=== PATIENT | male | born 1990 | race Two or more races ===

== ENCOUNTER 2023-08-11 23:15 | Emergency (ER) | payer SELFPAY ==
[2023-08-11 23:16] VITALS: BP 136/79; PULSE 66; RESP 20; TEMP 36.6; O2SAT 97; BMI 27.4
--- NOTE | 2023-08-11 23:16 | ECG_ITS ---
APPROVED REPORT Exam: Resting ECG HR:63 bpm ECG Measurements Heart Rate 63 AXES DE 141 P 21 QRSd 93 QRS 101 QT 371 T 28 QTc 378 Conclusion SINUS RHYTHM RIGHT AXIS DEVIATION [QRS AXIS > 100] ABNORMAL ECG UNCONFIRMED REPORT Electronically signed by : Xavier Domingo MD 08/16/2023 11:11:57
--- NOTE | 2023-08-11 23:21 | HMH.EDGENADL ---
Discharge Plan Disposition Patient Disposition: Home, Self-Care Prescriptions Prescriptions: New pantoprazole 40 mg tablet,delayed release (DR/EC) 40 mg PO DAILY 42 Days Qty: 42 0RF pantoprazole 40 mg tablet,delayed release (DR/EC) 40 mg PO DAILY 42 Days Qty: 42 0RF Activity Restrictions/Add. Instructions Additional Instructions/Restrictions: Please follow-up with your primary care provider. Please return to the emergency department if you develop any new or worsening symptoms or become concerned for your health. Please begin taking pantoprazole again. I have sent a prescription to your pharmacy. Clinical Impressions Clinical Impression: Gastritis Discharge ED Provider: Tray Goldstein General Adult HPI General Chief complaint: Chest Pain Stated complaint: CP Time Seen by Provider: 08/11/23 23:21 History of Present Illness HPI narrative: 32-year-old male, history of gastritis, presents with worsening chronic epigastric and left upper quadrant pain. Patient reports pain is also radiating into his chest that time. Symptoms have been ongoing for years, he had a scope and was on PPI for a long time with improvement. He ran out of his PPI a few months ago. At that time his symptoms have worsened. He reports mild nausea but no vomiting. Reports no shortness of breath. Related Data Previous Rx's Medication Instructions Recorded pantoprazole 40 mg tablet,delayed 40 mg PO DAILY 6 weeks #42 tabs 08/11/23 release pantoprazole 40 mg tablet,delayed 40 mg PO DAILY 6 weeks #42 tabs 08/11/23 release Allergies Allergy/AdvReac Type Severity Reaction Status Date / Time No Known Allergies Allergy Verified 08/11/23 23:43 [facility] Disclaimer: The information contained in this section may have been updated after the patient was seen, as this information can be updated by other users. Social History Smoking Status: Current every day smoker alcohol intake: never current occupational status: employed Travel in the last 8 weeks: None ROS Obtained: Yes All systems reviewed & no additional complaints except as documented Physical Exam General General appearance: alert and in no apparent distress Head Head exam: atraumatic and normocephalic Eye Eye exam: Present normal appearance, PERRL and EOMI ENT ENT exam: Present normal oropharynx and normal external ear exam Neck Neck exam: Present normal inspection and full ROM Chest Chest inspection: Present normal inspection and symmetric chest wall rise; Absent tenderness Respiratory Respiratory exam: Present normal lung sounds bilaterally; Absent respiratory distress Cardiovascular Cardiovascular exam: Present regular rate and normal rhythm Abdominal Exam Abdominal exam: Present soft and tenderness (Mild, epigastric/left lower quadrant); Absent distention or guarding Extremities Exam Extremities exam: Present normal inspection; Absent edema or joint swelling Back Exam Back exam: Present normal inspection; Absent tenderness Neurological Exam Neurological exam: Present alert and oriented X3; Absent motor sensory deficit Psychiatric Psychiatric exam: Present normal affect and normal mood Skin Skin exam: Present warm, dry and normal color Lymphatic Lymphatic Findings: no adenopathy Medical Decision Making Medical Records Medical records reviewed: Yes I reviewed the patient's medical records. Edward Inquiry Pt receiving controlled substance: No Edward was queried for this patient: No Vital Signs: 08/11/23 23:16 08/11/23 23:45 08/12/23 00:09 Temperature 97.9 F 98.4 F Temperature Source Oral Oral Pulse Rate 66 65 Pulse Rate [Right] 66 Respiratory Rate 20 16 Blood Pressure 125/84 Blood Pressure [Right Arm] 136/79 Blood Pressure Mean [Right Arm] 98 Blood Pressure Source Automatic Cuff Blood Pressure Source [Right Arm] Automatic Cuff Blood Pressure Position Sitting Blood Pressure Position [Right Arm] Sitting 02 S
[2023-08-11 23:45] VITALS: PULSE 66
[2023-08-12 00:09] VITALS: BP 125/84; PULSE 65; RESP 16; TEMP 36.9; O2SAT 97
== END 2023-08-12 00:10 | disposition home or self-care (01) ==
LOC: ER 08-12 00:20
PROVIDERS: Emergency Provider Emergency Medicine
DX: K29.00 Acute gastritis without bleeding (principal); R07.9 Chest pain, unspecified; F17.210 Nicotine dependence, cigarettes, uncomplicated
CPT/HCPCS: 93005; 99283

== ENCOUNTER 2023-08-19 02:02 | Emergency (ER) | payer SELFPAY ==
[2023-08-19 02:02] VITALS: BP 146/91; PULSE 72; RESP 18; TEMP 36.4; O2SAT 99; BMI 29.2
--- NOTE | 2023-08-19 02:31 | CT_ITS ---
PROCEDURE INFORMATION: Exam: CT Abdomen And Pelvis With Contrast Exam date and time: 08/19/2023 2:50 AM Age: 32 years old Clinical indication: Abdominal pain; Epigastric; Additional info: Epigastric pain, n/v, fever TECHNIQUE: Imaging protocol: Computed tomography of the abdomen and pelvis with contrast. Radiation optimization: All CT scans at this facility use at least one of these dose optimization techniques: automated exposure control; mA and/or kV adjustment per patient size (includes targeted exams where dose is matched to clinical indication); or iterative reconstruction. Contrast material: ISOVUE; Contrast volume: 75 ml; Contrast route: IV; REPORTING DATA: Count of CT and Cardiac NM exams in prior 12 months: This patient has received 0 known CTs and 0 known cardiac nuclear medicine studies in the 12 months prior to the current study. COMPARISON: No relevant prior studies available. FINDINGS: Lungs: No acute finding. Liver: Moderate hepatic steatosis is evident. Gallbladder and bile ducts: Normal. No calcified stones. No ductal dilation. Pancreas: Normal. No ductal dilation. Spleen: Normal. No splenomegaly. Adrenal glands: Normal. No mass. Kidneys and ureters: 11 mm cortical hypodensity lower pole right kidney with Hounsfield units consistent with a cyst. The kidneys demonstrate symmetric unobstructed function. Stomach and bowel: Unremarkable. No obstruction. No mucosal thickening. Appendix: No evidence of appendicitis. Intraperitoneal space: Unremarkable. No free air. No significant fluid collection. Vasculature: Unremarkable. No abdominal aortic aneurysm. Lymph nodes: Unremarkable. No enlarged lymph nodes. Urinary bladder: Unremarkable as visualized. Reproductive: The prostate gland is mildly prominent. Bones/joints: Unremarkable. No acute fracture. Soft tissues: A very small fat containing left inguinal hernia is noted. IMPRESSION: 1. There is no acute process evident within the abdomen or pelvis. 2. Moderate hepatic steatosis. 3. Other nonurgent findings as detailed. COMMENTS: Consistent with the [employer]'s Incidental Findings Committee white paper (J Am Eve Radiol 2018): Any incidental renal lesion less than 1 cm or classified as too small to characterize, or any incidental cystic renal lesion characterized as simple-appearing, is likely benign. No follow-up imaging is recommended for these lesions per consensus recommendations based on imaging criteria.
--- NOTE | 2023-08-19 02:32 | HMH.EDGENADL ---
Discharge Plan Disposition Patient Disposition: Home, Self-Care Condition: Good Prescriptions Prescriptions: New famotidine [Pepcid] 20 mg tablet 20 mg PO DAILY Qty: 30 0RF ondansetron 4 mg tablet,disintegrating 4 mg PO Q8H PRN (Reason: nausea and vomiting) 4 Days Qty: 12 0RF No Action pantoprazole 40 mg tablet,delayed release (DR/EC) 40 mg PO DAILY 42 Days Qty: 42 0RF pantoprazole 40 mg tablet,delayed release (DR/EC) 40 mg PO DAILY 42 Days Qty: 42 0RF Referrals Follow up/Referrals: Provider,Referral, MD [Primary Care Provider] - See instructions Activity Restrictions/Add. Instructions Additional Instructions/Restrictions: You were evaluated in the emergency department today. 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 Follow-up closely with a primary care provider over the next 3 days. Hydrate is much as possible. Eat a bland diet. Avoid alcohol. Clinical Impressions Clinical Impression: Abdominal pain, epigastric, Renal cyst, Fatty liver Instructions Patient Instructions: DI for Gastritis, DI for Acute Abdominal Pain Discharge ED Provider: Bekah Sun General Adult HPI General Chief complaint: Abdominal Pain Stated complaint: stomach pain Time Seen by Provider: 08/19/23 02:16 Mode of Arrival: Ambulatory Source of Information: Patient Limitations: No Limitations Description of Symptoms (Recalled from ER Triage Doc. by RN): Pt presents with abdominal pain for 3 days with episodes of vomiting. LBM today denies any diarrhea. History of Present Illness HPI narrative: This patient is a 32-year-old male with a history of gastritis on PPI presenting to the emergency department for evaluation with concern for epigastric abdominal pain, subjective fevers, nausea, and vomiting. He states that he is also having decreased urine output. He states that this has been going on for a couple of weeks now. On medical record review, he was evaluated here on 08/11/2023 for similar symptoms. At that time, he was diagnosed with gastritis and prescribed a PPI. No imaging was performed at that time based on reassuring history and exam. Patient states that since going home on the PPI, it has not really been helping with his symptoms. He states he is also taken Tylenol with minimal improvement. He denies any cough, congestion, chest pain, shortness of breath, changes in bowel movements, or other concerns. He does note a remote history of endoscopy, which when he was diagnosed with a hiatal hernia. History is obtained with the help of a steel roller. Of note, patient does note use of alcohol almost daily. He states that he would estimate that he drinks as many as 15 days in a row. He denies any smoking or illicit drug use. Related Data Previous Rx's Medication Instructions Recorded pantoprazole 40 mg tablet,delayed 40 mg PO DAILY 6 weeks #42 tabs 08/11/23 release pantoprazole 40 mg tablet,delayed 40 mg PO DAILY 6 weeks #42 tabs 08/11/23 release famotidine 20 mg tablet (Pepcid) 20 mg PO DAILY #30 tabs 08/19/23 ondansetron 4 mg disintegrating 4 mg PO Q8H PRN nausea and 08/19/23 tablet vomiting 4 days #12 tabs Allergies Allergy/AdvReac Type Severity Reaction Status Date / Time No Known Allergies Allergy Verified 08/11/23 23:43 [facility] Disclaimer: The information contained in this section may have been updated after the patient was seen, as this information can be updated by other users. Social History Smoking Status: Never smoker alcohol intake: never current occupational status: employed Travel in the last 8 weeks: None ROS Obtained: Yes All systems reviewed & no additional complaints except as documented Physical Exam General General appearance: alert and in no apparent distress Comment: Well-appearing Head Head exam: atraumatic and normocephalic Eye Eye exam: Present normal
[2023-08-19 02:37] LABS: Basophils # 0.1 K/mm3 (0-0.2); Basophils % 0.9 % (0.1-2.0); Eosinophils # 1.5 K/mm3 (0.0-0.4); Hematocrit 46.6 % (42.0-52.0); Lymphocytes # 2.7 K/mm3 (0.7-4.5); Mean Corpuscular HGB Conc 34.2 g/dL (31.8-35.4); Mean Corpuscular Hemoglobin 31.1 pg (27.0-31.2); Mean Corpuscular Volume 90.8 fl (80-94); Monocytes # 0.4 K/mm3 (0.1-1.0); Monocytes % 5.6 % (1.7-9.3); Neutrophils # 2.9 K/mm3 (1.8-7.8); Neutrophils % 38.5 % (37.0-80.0); Platelet Count 218 K/mm3 (142-424); Red Blood Count 5.13 M/mm3 (4.60-6.20); Red Cell Distribution Width 13.1 % (11.5-17.5); White Blood Count 7.6 K/mm3 (4.8-10.8)
[2023-08-19 02:41] LABS: Alanine Aminotransferase 109 U/L (12-78); Albumin Level 4.9 g/dl (3.5-5.0); Albumin/Globulin Ratio 1.2 (1.1-1.8); Alkaline Phosphatase 87 U/L (38-126); Anion Gap 14.7 mEq/L (5-15); Aspartate Amino Transferase 66 U/L (17-59); Bilirubin,Total 0.4 mg/dl (0.2-1.3); Blood Urea Nitrogen 18 mg/dl (9-20); Calcium 9.5 mg/dl (8.4-10.2); Carbon Dioxide 24 mmol/L (22.0-30.0); Chloride 104 mmol/L (98-107); Creatinine Clearance Estimated 200 mL/min (50-200); Estimated Glomerular Filt Rate 190 ml/min (>60); GFR (African American) 230 ML/MIN (>60); Globulin 4.2 g/dL (1.3-3.2); Glucose 101 mg/dl (74-100); Lipase 104 U/L (23-300); Potassium 3.7 mmoL/L (3.5-5.1); Sodium 139 mmol/L (136-145); Total Protein,Serum 9.1 g/dl (6.3-8.2)
--- NOTE | 2023-08-19 03:52 | PC.NURSE ---
Pt provided crackers and og javier for PO challenge
[2023-08-19 04:18] VITALS: BP 140/88; PULSE 75; RESP 16; TEMP 36.6; O2SAT 98
== END 2023-08-19 04:25 | disposition home or self-care (01) ==
PROVIDERS: Emergency Provider Emergency Medicine
DX: R10.13 Epigastric pain (principal); K76.0 Fatty (change of) liver, not elsewhere classified; R11.2 Nausea with vomiting, unspecified; N28.1 Cyst of kidney, acquired; K44.9 Diaphragmatic hernia without obstruction or gangrene; F10.90 Alcohol use, unspecified, uncomplicated
CPT/HCPCS: 74177; 80053; 83690; 85025; 96374; 96375; 99284; J0131; J2405; Q9967

== ENCOUNTER 2025-03-15 13:47 | Emergency (ER) | payer SELFPAY ==
--- NOTE | 2025-03-15 13:53 | HMH.EDGENADL ---
Discharge Plan Disposition Patient Disposition: Home, Self-Care Condition: Good Prescriptions Prescriptions: No Action pantoprazole 40 mg tablet,delayed release (DR/EC) 40 mg PO DAILY 42 Days Qty: 42 0RF pantoprazole 40 mg tablet,delayed release (DR/EC) 40 mg PO DAILY 42 Days Qty: 42 0RF famotidine [Pepcid] 20 mg tablet 20 mg PO DAILY Qty: 30 0RF ondansetron 4 mg tablet,disintegrating 4 mg PO Q8H PRN (Reason: nausea and vomiting) 4 Days Qty: 12 0RF Referrals Follow up/Referrals: Rowan Goyal APRN [Primary Care Provider] - See instructions Activity Restrictions/Add. Instructions Additional Instructions/Restrictions: As we discussed I recommend taking Tylenol alternating with Motrin for your symptoms. If you have persistent new or worsening signs or symptoms follow-up with your PCP return to the ER as needed. I recommend starting a brat diet which is bananas rice applesauce toast until you tolerate any and then you may advance as tolerated. Clinical Impressions Clinical Impression: Enteritis Instructions Patient Instructions: DI for Acute Abdominal Pain Print Language Print Language: Dominican Discharge ED Provider: Mich Alexander General Adult HPI <TRENTON Aragon - Last Filed: 03/15/25 21:17> General Chief complaint: Abdominal Pain Stated complaint: stomach pain headache Time Seen by Provider: 03/15/25 13:53 History of Present Illness HPI narrative: Patient presents for evaluation of abdominal pain nausea vomiting diarrhea. Patient has 3 days of nausea vomiting diarrhea and abdominal pain. Abdominal pain is diffuse nonfocal nonradiating. He reports that he has a headache today but denies sore throat chest pain shortness of breath fever chills hemoptysis hematochezia melena hematemesis hematuria. Related Data Previous Rx's ?Medication ?Instructions ?Recorded pantoprazole 40 mg tablet,delayed 40 mg PO DAILY 6 weeks #42 tabs 08/11/23 release pantoprazole 40 mg tablet,delayed 40 mg PO DAILY 6 weeks #42 tabs 08/11/23 release famotidine 20 mg tablet (Pepcid) 20 mg PO DAILY #30 tabs 08/19/23 ondansetron 4 mg disintegrating 4 mg PO Q8H PRN nausea and 08/19/23 tablet vomiting 4 days #12 tabs Allergies Allergy/AdvReac Type Severity Reaction Status Date / Time No Known Allergies Allergy Verified 08/11/23 23:43 [facility] <TRENTON Aragon - Last Filed: 03/15/25 21:17> [facility] Disclaimer: The information contained in this section may have been updated after the patient was seen, as this information can be updated by other users. Social History Smoking Status: Never smoker alcohol intake: never current occupational status: employed Travel in the last 8 weeks?: None Have you lived/traveled outside US in past 30 days?: No Contact w/someone who lives/traveled outside US past 30 days?: No Exposure to someone with infectious disease in past 14 days?: No Do you have a fever (greater than 100.4 F or 38 C)?: No Have you tested positive for COVID-19?: No Exposed to someone with COVID-19 in past 14 days?: No Do you have a sore throat?: No Do you have a cough?: No Do you have any weakness?: No Do you have any diarrhea?: No Are you experiencing any unusual bleeding?: No Do you have any muscle aches/pain?: No Do you have any abdominal pain?: No Are you experiencing loss of taste or smell?: No <TRENTON Aragon - Last Filed: 03/15/25 21:17> ROS Obtained: Yes Systems reviewed as appropriate & no additional complaints except as documented Physical Exam <TRENTON Aragon - Last Filed: 03/15/25 21:17> General General appearance: alert and in no apparent distress Respiratory Respiratory exam: Present normal lung sounds bilaterally Cardiovascular Cardiovascular exam: Present regular rate Neurological Exam Neurological exam: Present alert and oriented X3 Medical Decision Making <TRENTON Aragon - Last Filed: 03/15/25 21:17> Medical Records Medical records reviewed: Yes I reviewed the patient's medical records. Screening: Per USPSTF and CDC recommendations, given the prevalence of disease in our region, it is our hospital?s policy to screen for HIV and viral Hepatitis for all patients aged 18 and over and those with ongoing risk factors. Edward Inquiry Pt receiving controlled substance: No Vital Signs: 03/15/25 14:00 03/15/25 14:00 03/15/25 14:31 Temperature 99.0 F Temperature Source Oral Pulse Rate 69 75 Pulse Rate [Right] 98 H Respiratory Rate 17 Blood Pressure 104/65 L 103/62 L Blood Pressure [Right Arm] 116/78 Blood Pressure Mean [Right Arm] 90 Blood Pressure Source Blood Pressure Source [Right Arm] Automatic Cuff Blood Pressure Position 02 Sat by Pulse Oximetry 99 96 98 Oxygen Delivery Method Room Air Room Air Room Air 03/15/25 14:34 03/15/25 15:01 03/15/25 15:30 Temperature Temperature Source Pulse Rate 89 78 84 Pulse Rate [Right] Respiratory Rate Blood Pressure 106/67 L 101/59 L 115/67 Blood Pressure [Right Arm] Blood Pressure Mean [Right Arm] Blood Pressure Source Blood Pressure Source [Right Arm] Blood Pressure Position 02 Sat by Pulse Oximetry 96 98 96 Oxygen Delivery Method Room Air Room Air Room Air 03/15/25 18:15 Temperature 98.1 F Temperature Source Oral Pulse Rate 84 Pulse Rate [Right] Respiratory Rate 17 Blood Pressure 115/67 Blood Pressure [Right Arm] Blood Pressure Mean [Right Arm] Blood Pressure Source Automatic Cuff Blood Pressure Source [Right Arm] Blood Pressure Position Sitting 02 Sat by Pulse Oximetry Oxygen Delivery Method Room Air Lab Data Lab results reviewed: Yes I reviewed the patient's lab results. Lab Results 03/15/25 14:21: WBC 7.7, RBC 4.99, Hgb 15.0, Hct 43.5, MCV 87.2, MCH 30.1, MCHC 34.5, RDW 12.8, Plt Count 166, MPV 9.7, Neut % (Auto) 73.9, Lymph % (Auto) 15.0, [place] % (Auto) 10.2 H, Eos % (Auto) 0.3, Baso % (Auto) 0.3, Neut # (Auto) 5.7, Lymph # (Auto) 1.2, [place] # (Auto) 0.8, Eos # (Auto) 0.0, Baso # (Auto) 0.0, PT 11.9, INR 1.07, Sodium 136, Potassium 3.7, Chloride 106, Carbon Dioxide 23, Anion Gap 10.7, BUN 12, Creatinine 0.50 L, Estimated Creat Clear 157, Estimated GFR 188, Est GFR ( Amer) 228, Glucose 85, Calcium 9.0, Total Bilirubin 0.7, AST 45, ALT 75, Alkaline Phosphatase 67, Total Protein 7.9, Albumin 4.9, Globulin 3.0, Albumin/Globulin Ratio 1.6, Lipase 31, Procalcitonin 0.120, HCV Ab BLANCA w/Rflx PCR Qn Negative, HIV Ag/Ab Combo Qual Negative 03/15/25 16:13: Urine Color Yellow, Urine Appearance Clear, Urine pH 6.0, Ur Specific [place] <= 1.005, Urine Protein Negative, Urine Glucose (UA) Negative, Urine Ketones 1+, Urine Blood Negative, Urine Nitrate Negative, Urine Bilirubin Negative, Urine Urobilinogen 0.2, Ur Leukocyte Esterase Negative, Urine RBC None, Urine WBC Occasional, Ur Squamous Epith Cells Occasional, Urine Bacteria Trace 03/15/25 14:21 03/15/25 14:21 Orders (Tests/Meds): ED MEDICATIONS Discontinued Medications Generic Name Dose Route Start Last Admin Trade Name Freq PRN Reason Stop Dose Admin Acetaminophen 1,000 mg 03/15/25 16:19 03/15/25 16:25 Acetaminophen 500mg Tab PO 03/15/25 16:20 1,000 mg ONCE ONE Administration Sodium Chloride 1,000 mls @ 999 mls/hr 03/15/25 14:13 03/15/25 14:46 Sod Chlor 0.9% 1000ml Bag IV 03/15/25 15:13 999 mls/hr .Q1H1M ONE Administration Iopamidol 75 ml 03/15/25 15:00 03/15/25 15:01 Iopamidol-370 (76%);100ml Bottle IV 03/15/25 15:01 Not Given ONCE ONE Iopamidol 75 ml 03/15/25 15:00 03/15/25 15:01 Iopamidol-370 (76%);100ml Bottle IV 03/15/25 15:01 Not Given ONCE ONE Ketorolac Tromethamine 30 mg 03/15/25 16:19 03/15/25 16:25 Ketorolac 30mg/Ml Vial IV 03/15/25 16:20 30 mg ONCE ONE Administration Ondansetron HCl 4 mg 03/15/25 14:13 03/15/25 14:49 Ondansetron 4mg/2ml Vial IV 03/15/25 14:14 4 mg ONCE ONE Administration Ondansetron HCl 4 mg 03/15/25 16:43 03/15/25 16:58 Ondansetron 4mg/2ml Vial IV 03/15/25 16:44 4 mg ONCE ONE Administration Sodium Chloride 10 ml 03/15/25 14:59 03/15/25 15:01 Sodium Chloride 0.9% 10ml Syr (Rad Only) IV 03/15/25 15:00 10 ml ONCE ONE Administration Sodium Chloride 10 ml 03/15/25 15:00 03/15/25 16:23 Sodium Chloride 0.9% 10ml Syr (Rad Only) IV 03/15/25 15:01 Not Given ONCE ONE ORDERS Category Date Time Status CT abdomen pelvis w con Stat Cat Scan 03/15/25 14:13 Completed CBC w/Auto Diff [Complete Blood Count Auto Diff] Stat Lab 03/15/25 14:21 Completed CMP [Comprehensive Metabolic Panel] Stat Lab 03/15/25 14:21 Completed HIV Combo Stat Lab 03/15/25 14:21 Completed Hepatitis C Ab Qual. W/ RFX Stat Lab 03/15/25 14:21 Completed INR [Prothrombin Time INR] Stat Lab 03/15/25 14:21 Completed Lipase Stat Lab 03/15/25 14:21 Completed Procalcitonin Stat Lab 03/15/25 14:21 Completed UA [Urinalysis and Microscopic] Stat Lab 03/15/25 16:13 Completed Medical Decision Narrative: In summary patient is a 34-year-old female who presents to the emergency department for evaluation of abdominal pain nausea vomiting diarrhea. Patient is initially slightly hypotensive with a blood pressure 104/65 with a heart rate of 69 normal sinus rhythm on the bedside monitor breathing 17 times minute satting at 99% on room air upon arrival, with a temperature of 99. 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 Bowel sounds hyperactive.. Differential diagnosis includes enteritis versus upper or lower respiratory tract infection versus urinary tract infection etc. Initial workup will be conducted with hematologic labs urinalysis CT scan abdomen pelvis. Initial interventions include crystalloid bolus Tylenol Toradol Zofran. Initial workup reviewed by me and his hematologic labs significant for white count 7.7 normal H&H with no neutrophilic shift, INR of 1.07, the remainder of his hematologic labs are nonactionable including a lipase of 31 no transaminitis or hyperbilirubinemia and procalcitonin is 0.120 urinalysis was bland without evidence of urinary tract infection in my informed interpretation of his CT scan abdomen pelvis shows fluid-filled small bowel is not dilated and no other acute intra-abdominal processes prior to radiology read. Please see final read for formal interpretation.. Upon repeat evaluation patient reports significant improvement and is tolerating oral intake in the emergency department.. Given this patient is appropriate for discharge with recommendations to start a brat diet with bananas rice applesauce toast and should he have persistent new or worsening signs or symptoms follow-up with his PCP return to the ER as needed <Mich Alexander MD - Last Filed: 03/15/25 21:31> Vital Signs: 03/15/25 14:00 03/15/25 14:00 03/15/25 14:31 Temperature 99.0 F Temperature Source Oral Pulse Rate 69 75 Pulse Rate [Right] 98 H Respiratory Rate 17 Blood Pressure 104/65 L 103/62 L Blood Pressure [Right Arm] 116/78 Blood Pressure Mean [Right Arm] 90 Blood Pressure Source Blood Pressure Source [Right Arm] Automatic Cuff Blood Pressure Position 02 Sat by Pulse Oximetry 99 96 98 Oxygen Delivery Method Room Air Room Air Room Air 03/15/25 14:34 03/15/25 15:01 03/15/25 15:30 Temperature Temperature Source Pulse Rate 89 78 84 Pulse Rate [Right] Respiratory Rate Blood Pressure 106/67 L 101/59 L 115/67 Blood Pressure [Right Arm] Blood Pressure Mean [Right Arm] Blood Pressure Source Blood Pressure Source [Right Arm] Blood Pressure Position 02 Sat by Pulse Oximetry 96 98 96 Oxygen Delivery Method Room Air Room Air Room Air 03/15/25 18:15 Temperature 98.1 F Temperature Source Oral Pulse Rate 84 Pulse Rate [Right] Respiratory Rate 17 Blood Pressure 115/67 Blood Pressure [Right Arm] Blood Pressure Mean [Right Arm] Blood Pressure Source Automatic Cuff Blood Pressure Source [Right Arm] Blood Pressure Position Sitting 02 Sat by Pulse Oximetry Oxygen Delivery Method Room Air Lab Data Lab Results 03/15/25 14:21: WBC 7.7, RBC 4.99, Hgb 15.0, Hct 43.5, MCV 87.2, MCH 30.1, MCHC 34.5, RDW 12.8, Plt Count 166, MPV 9.7, Neut % (Auto) 73.9, Lymph % (Auto) 15.0, [place] % (Auto) 10.2 H, Eos % (Auto) 0.3, Baso % (Auto) 0.3, Neut # (Auto) 5.7, Lymph # (Auto) 1.2, [place] # (Auto) 0.8, Eos # (Auto) 0.0, Baso # (Auto) 0.0, PT 11.9, INR 1.07, Sodium 136, Potassium 3.7, Chloride 106, Carbon Dioxide 23, Anion Gap 10.7, BUN 12, Creatinine 0.50 L, Estimated Creat Clear 157, Estimated GFR 188, Est GFR ( Amer) 228, Glucose 85, Calcium 9.0, Total Bilirubin 0.7, AST 45, ALT 75, Alkaline Phosphatase 67, Total Protein 7.9, Albumin 4.9, Globulin 3.0, Albumin/Globulin Ratio 1.6, Lipase 31, Procalcitonin 0.120, HCV Ab BLANCA w/Rflx PCR Qn Negative, HIV Ag/Ab Combo Qual Negative 03/15/25 16:13: Urine Color Yellow, Urine Appearance Clear, Urine pH 6.0, Ur Specific [place] <= 1.005, Urine Protein Negative, Urine Glucose (UA) Negative, Urine Ketones 1+, Urine Blood Negative, Urine Nitrate Negative, Urine Bilirubin Negative, Urine Urobilinogen 0.2, Ur Leukocyte Esterase Negative, Urine RBC None, Urine WBC Occasional, Ur Squamous Epith Cells Occasional, Urine Bacteria Trace Orders (Tests/Meds): ED MEDICATIONS Discontinued Medications Generic Name Dose Route Start Last Admin Trade Name Freq PRN Reason Stop Dose Admin Acetaminophen 1,000 mg 03/15/25 16:19 03/15/25 16:25 Acetaminophen 500mg Tab PO 03/15/25 16:20 1,000 mg ONCE ONE Administration Sodium Chloride 1,000 mls @ 999 mls/hr 03/15/25 14:13 03/15/25 14:46 Sod Chlor 0.9% 1000ml Bag IV 03/15/25 15:13 999 mls/hr .Q1H1M ONE Administration Iopamidol 75 ml 03/15/25 15:00 03/15/25 15:01 Iopamidol-370 (76%);100ml Bottle IV 03/15/25 15:01 Not Given ONCE ONE Iopamidol 75 ml 03/15/25 15:00 03/15/25 15:01 Iopamidol-370 (76%);100ml Bottle IV 03/15/25 15:01 Not Given ONCE ONE Ketorolac Tromethamine 30 mg 03/15/25 16:19 03/15/25 16:25 Ketorolac 30mg/Ml Vial IV 03/15/25 16:20 30 mg ONCE ONE Administration Ondansetron HCl 4 mg 03/15/25 14:13 03/15/25 14:49 Ondansetron 4mg/2ml Vial IV 03/15/25 14:14 4 mg ONCE ONE Administration Ondansetron HCl 4 mg 03/15/25 16:43 03/15/25 16:58 Ondansetron 4mg/2ml Vial IV 03/15/25 16:44 4 mg ONCE ONE Administration Sodium Chloride 10 ml 03/15/25 14:59 03/15/25 15:01 Sodium Chloride 0.9% 10ml Syr (Rad Only) IV 03/15/25 15:00 10 ml ONCE ONE Administration Sodium Chloride 10 ml 03/15/25 15:00 03/15/25 16:23 Sodium Chloride 0.9% 10ml Syr (Rad Only) IV 03/15/25 15:01 Not Given ONCE ONE ORDERS Category Date Time Status CT abdomen pelvis w con Stat Cat Scan 03/15/25 14:13 Completed CBC w/Auto Diff [Complete Blood Count Auto Diff] Stat Lab 03/15/25 14:21 Completed CMP [Comprehensive Metabolic Panel] Stat Lab 03/15/25 14:21 Completed HIV Combo Stat Lab 03/15/25 14:21 Completed Hepatitis C Ab Qual. W/ RFX Stat Lab 03/15/25 14:21 Completed INR [Prothrombin Time INR] Stat Lab 03/15/25 14:21 Completed Lipase Stat Lab 03/15/25 14:21 Completed Procalcitonin Stat Lab 03/15/25 14:21 Completed UA [Urinalysis and Microscopic] Stat Lab 03/15/25 16:13 Completed Medical Decision Narrative: In summary patient is a 34-year-old female who presents to the emergency department for evaluation of abdominal pain nausea vomiting diarrhea. Patient is initially slightly hypotensive with a blood pressure 104/65 with a heart rate of 69 normal sinus rhythm on the bedside monitor breathing 17 times minute satting at 99% on room air upon arrival, with a temperature of 99. 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 Bowel sounds hyperactive.. Differential diagnosis includes enteritis versus upper or lower respiratory tract infection versus urinary tract infection etc. Initial workup will be conducted with hematologic labs urinalysis CT scan abdomen pelvis. Initial interventions include crystalloid bolus Tylenol Toradol Zofran. Initial workup reviewed by me and his hematologic labs significant for white count 7.7 normal H&H with no neutrophilic shift, INR of 1.07, the remainder of his hematologic labs are nonactionable including a lipase of 31 no transaminitis or hyperbilirubinemia and procalcitonin is 0.120 urinalysis was bland without evidence of urinary tract infection in my informed interpretation of his CT scan abdomen pelvis shows fluid-filled small bowel is not dilated and no other acute intra-abdominal processes prior to radiology read. Please see final read for formal interpretation.. Upon repeat evaluation patient reports significant improvement and is tolerating oral intake in the emergency department.. Given this patient is appropriate for discharge with recommendations to start a brat diet with bananas rice applesauce toast and should he have persistent new or worsening signs or symptoms follow-up with his PCP return to the ER as needed. I was consulted by the ANDREW, and we discussed the complexity of the problems being addressed. I approved the treatment and management plan for this patient's care in the emergency department, thus performing a substantive portion of the medical decision making. Mcih Alexander MD Critical Care <TRENTON Aragon - Last Filed: 03/15/25 21:17> Critical Care Time Critical Care Time: No
[2025-03-15 14:00] VITALS: BP 104/65; BP 116/78; PULSE 69; PULSE 98; RESP 17; TEMP 37.2; O2SAT 96; O2SAT 99; BMI 21.9
--- NOTE | 2025-03-15 14:13 | CT_ITS ---
PROCEDURE INFORMATION: Exam: CT Abdomen And Pelvis With Contrast Exam date and time: 03/15/2025 2:54 PM Age: 34 years old Clinical indication: Nausea and vomiting; Additional info: Nausea vomiting diarrhea abdominal pain TECHNIQUE: Imaging protocol: Computed tomography of the abdomen and pelvis with contrast. Radiation optimization: All CT scans at this facility use at least one of these dose optimization techniques: automated exposure control; mA and/or kV adjustment per patient size (includes targeted exams where dose is matched to clinical indication); or iterative reconstruction. Contrast material: ISOVUE; Contrast volume: 75 ml; Contrast route: IV; COMPARISON: CT ABDOMEN PELVIS W CON 08/19/2023 2:50 AM FINDINGS: Lungs: Lung bases are clear. Liver: Liver is not significantly enlarged. There is diffuse fatty infiltration. No masses detected. Gallbladder and biliary ducts: Normal. No calcified stones. No ductal dilation. Pancreas: Unremarkable. Main pancreatic duct is not significantly dilated. Spleen: Normal. No splenomegaly. Adrenal glands: Normal. No mass. Kidneys and ureters: Normal. No hydronephrosis. Stomach and bowel: Unremarkable. No obstruction. No mucosal thickening. Appendix: No evidence of appendicitis. Intraperitoneal space: Unremarkable. No free air. No significant fluid collection. Vasculature: Unremarkable. No abdominal aortic aneurysm. Lymph nodes: Mild mesenteric lymphadenopathy midabdomen unchanged likely benign and longstanding. Urinary bladder: Unremarkable as visualized. Reproductive: Prostate gland is mildly enlarged, unchanged. Bones/joints: Unremarkable. No acute fracture. Soft tissues: Small fat containing left inguinal hernia. Right groin site is unremarkable. IMPRESSION: No acute findings within the abdomen or pelvis.
[2025-03-15 14:31] VITALS: BP 103/62; PULSE 75; O2SAT 98
[2025-03-15 14:31] LABS: Basophils % 0.3 % (0.1-2.0); Eosinophils % 0.3 % (0.1-12.0); Hematocrit 43.5 % (42.0-52.0); Immature Granulocytes # 0.02 10^3uL; Immature Granulocytes % 0.3 %; Lymphocytes # 1.2 K/mm3 (0.7-4.5); Mean Corpuscular HGB Conc 34.5 g/dL (31.8-35.4); Mean Corpuscular Hemoglobin 30.1 pg (27.0-31.2); Mean Corpuscular Volume 87.2 fl (80-94); Mean Platelet Volume 9.7 fl (7.4-10.4); Monocytes # 0.8 K/mm3 (0.1-1.0); Monocytes % 10.2 % (1.7-9.3); Neutrophils # 5.7 K/mm3 (1.8-7.8); Neutrophils % 73.9 % (37.0-80.0); Nucleated Red Blood Cells # 0 10^3/uL; Nucleated Red Blood Cells % 0 %; Platelet Count 166 K/mm3 (142-424); Red Blood Count 4.99 M/mm3 (4.60-6.20); Red Cell Distribution Width 12.8 % (11.5-17.5); Red Cell Distribution Width-SD 40.6 fL; White Blood Count 7.7 K/mm3 (4.8-10.8)
[2025-03-15 14:34] VITALS: BP 106/67; PULSE 89; O2SAT 96
[2025-03-15 14:41] LABS: Alanine Aminotransferase 75 U/L (12-78); Albumin Level 4.9 g/dl (3.5-5.0); Albumin/Globulin Ratio 1.6 (1.1-1.8); Alkaline Phosphatase 67 U/L (38-126); Anion Gap 10.7 mEq/L (5-15); Aspartate Amino Transferase 45 U/L (17-59); Bilirubin,Total 0.7 mg/dl (0.2-1.3); Blood Urea Nitrogen 12 mg/dl (9-20); Carbon Dioxide 23 mmol/L (22.0-30.0); Chloride 106 mmol/L (98-107); Creatinine Clearance Estimated 157 mL/min (50-200); Estimated Glomerular Filt Rate 188 ml/min (>60); GFR (African American) 228 ML/MIN (>60); Glucose 85 mg/dl (74-100); Lipase 31 U/L (23-300); Potassium 3.7 mmoL/L (3.5-5.1); Sodium 136 mmol/L (136-145); Total Protein,Serum 7.9 g/dl (6.3-8.2)
[2025-03-15 14:42] LABS: INR 1.07 (0.9-1.1); Prothrombin Time 11.9 seconds (10.1-12.5)
[2025-03-15] MEDS: 0.9 % SODIUM CHLORIDE 1000ML 1,000 ML 999 ML IV (14:46)
[2025-03-15] MEDS: ONDANSETRON 4MG/2ML VIAL 4 MG IV ×2 (14:49→16:58)
[2025-03-15 15:01] VITALS: BP 101/59; PULSE 78; O2SAT 98
[2025-03-15] MEDS: SODIUM CHLORIDE 0.9% 10ML SYR (RAD ONLY) 10 ML IV (15:01)
[2025-03-15 15:30] VITALS: BP 115/67; PULSE 84; O2SAT 96
[2025-03-15 16:02] LABS: HIV Combo NEGATIVE (Negative)
[2025-03-15 16:10] LABS: Hepatitis C Ab Qual. W/ RFX NEGATIVE (Negative)
[2025-03-15 16:20] LABS: Microscopic, Urine URINE MICROSCOPIC (MICROSCOPIC)
[2025-03-15] MEDS: ACETAMINOPHEN 500MG TAB 1000 MG PO (16:25)
[2025-03-15] MEDS: KETOROLAC 30MG/ML VIAL 30 MG IV (16:25)
[2025-03-15 16:28] LABS: Appearance,Urine CLEAR (Clear); Bilirubin,Urine Negative (Negative); Blood, Urine Negative (Negative); Color,Urine YELLOW (Yellow); Glucose,Urine (UA) Negative (Negative); Ketones,Urine 1+ (Negative); Leukocyte Esterase,Urine Negative (Negative); Nitrate,Urine Negative (Negative); Protein,Urine Negative (Negative); Specific Gravity, Urine <= 1.005 (1.005-1.030); Urobilinogen,Urine 0.2 EU/dl (0.2)
[2025-03-15 16:51] LABS: Squamous Epithelial Cell,Urine Occasional #/hpf (0-5); WBC,Urine Occasional #/hpf (0-3)
[2025-03-15 16:52] LABS: Bacteria,Urine Trace /lpf
[2025-03-15 18:15] VITALS: BP 115/67; PULSE 84; RESP 17; TEMP 36.7; O2SAT 97
== END 2025-03-15 18:15 | disposition home or self-care (01) ==
PROVIDERS: Physician Assistant; Emergency Provider Emergency Medicine; PCP Nurse Practitioner Family
DX: R10.84 Generalized abdominal pain (principal); K52.9 Noninfective gastroenteritis and colitis, unspecified; R11.2 Nausea with vomiting, unspecified; Z11.59 Encounter for screening for other viral diseases; Z11.4 Encounter for screening for human immunodeficiency virus [HIV]
CPT/HCPCS: 74177; 80053; 81001; 83690; 84145; 85025; 85610; 86803; 87389; 96361; 96374; 96375; 99285; J1885; J2405; J7030

== ENCOUNTER 2025-05-13 14:55 | Emergency (ER) | payer SELFPAY ==
[2025-05-13 14:58] VITALS: BP 126/87; PULSE 73; RESP 14; TEMP 36.8; O2SAT 99; BMI 23.8
--- NOTE | 2025-05-13 15:03 | CT_ITS ---
FINAL REPORT TECHNIQUE: Oral and IV contrast enhanced exam This study was performed with techniques to keep radiation doses as low as reasonably achievable, (ALARA). Individualized dose reduction techniques using automated exposure control or adjustment of mA and/or kV according to the patient''s size were employed. CLINICAL HISTORY: N/V/RLQ abdominal pain COMPARISON: 03/15/2025 FINDINGS: Abdomen: There is redemonstration of fatty infiltration of the liver. The remaining solid organs are unremarkable. The gallbladder is contracted. There is no evidence of bowel obstruction. There is no adenopathy. Pelvis: There are no changes of appendicitis. Distal small bowel is fluid-filled which can be seen with ileus or enteritis. Mild prostate enlargement is noted. There is a tiny left inguinal hernia containing fat. IMPRESSION: Fluid-filled distal small bowel which may be seen with ileus or enteritis. No evidence of obstruction or appendicitis. Reviewed, Interpreted and Dictated by Shilpa Hills MD Transcribed by Joyce Yanez Authenticated and [facility]
--- NOTE | 2025-05-13 15:12 | [facility].EDGENADL ---
Discharge Plan Disposition Patient Disposition: Home, Self-Care Prescriptions Prescriptions: New ondansetron 4 mg tablet,disintegrating 4 mg PO Q6H PRN (Reason: nausea and vomiting) Qty: 12 0RF No Action pantoprazole 40 mg tablet,delayed release (DR/EC) 40 mg PO DAILY 42 Days Qty: 42 0RF pantoprazole 40 mg tablet,delayed release (DR/EC) 40 mg PO DAILY 42 Days Qty: 42 0RF famotidine [Pepcid] 20 mg tablet 20 mg PO DAILY Qty: 30 0RF ondansetron 4 mg tablet,disintegrating 4 mg PO Q8H PRN (Reason: nausea and vomiting) 4 Days Qty: 12 0RF Referrals Follow up/Referrals: Provider,Referral, MD [Primary Care Provider, Medical] - See instructions Activity Restrictions/Add. Instructions Additional Instructions/Restrictions: You have some inflammation in your colon that should get better over time. You can take Zofran to help with any nausea or vomiting. You will likely have some diarrhea over the next few days. I encourage you to follow-up with your primary care physician next week, especially if symptoms do not resolve. If you develop any new or worsening symptoms, or if you become concerned for your health for any reason, return to the emergency department for evaluation Clinical Impressions Clinical Impression: Enteritis, Nausea vomiting and diarrhea Instructions Patient Instructions: DI for Acute Abdominal Pain Print Language Print Language: Israeli Discharge ED Provider: David Mares General Adult HPI General Chief complaint: Abdominal Pain Stated complaint: Vomitting; Abdominal Pain Time Seen by Provider: 05/13/25 15:00 History of Present Illness HPI narrative: Mr. Eubanks is a 34-year-old male with past medical history of GERD on pantoprazole who presents to the emergency department for complaints of nausea, vomiting and lower abdominal pain. Patient is Israeli-speaking and a virtual historical interpreter was used for the entire encounter. Patient states that starting yesterday, he developed nonbilious nonbloody vomiting as well as lower abdominal pain that radiates to his back. He also notes a few episodes of diarrhea with a small amount of blood in the diarrhea. He denies any previous abdominal surgeries. He has otherwise been in his normal state of health prior to this. He denies any dysuria or testicular pain. He states that he feels full quickly after eating. Related Data Previous Rx's ?Medication ?Instructions ?Recorded pantoprazole 40 mg tablet,delayed 40 mg PO DAILY 6 weeks #42 tabs 08/11/23 release pantoprazole 40 mg tablet,delayed 40 mg PO DAILY 6 weeks #42 tabs 08/11/23 release famotidine 20 mg tablet (Pepcid) 20 mg PO DAILY #30 tabs 08/19/23 ondansetron 4 mg disintegrating 4 mg PO Q8H PRN nausea and 08/19/23 tablet vomiting 4 days #12 tabs ondansetron 4 mg disintegrating 4 mg PO Q6H PRN nausea and 05/13/25 tablet vomiting #12 tabs Allergies Allergy/AdvReac Type Severity Reaction Status Date / Time No Known Allergies Allergy Verified 08/11/23 23:43 [facility] Disclaimer: The information contained in this section may have been updated after the patient was seen, as this information can be updated by other users. Social History Smoking Status: Never smoker alcohol intake: never current occupational status: employed Travel in the last 8 weeks?: None Have you lived/traveled outside [place] in past 30 days?: No Contact w/someone who lives/traveled outside [place] past 30 days?: No Exposure to someone with infectious disease in past 14 days?: No Do you have a fever (greater than 100.4 F or 38 C)?: No Have you tested positive for COVID-19?: No Exposed to someone with COVID-19 in past 14 days?: No Do you have a sore throat?: No Do you have a cough?: No Do you have any weakness?: No Do you have any diarrhea?: No Are you experiencing any unusual bleeding?: No Do you have any muscle aches/pain?: No Do you have any abdominal pain?: No Are you experiencing loss of taste or smell?: No ROS Obtained: Yes Systems reviewed as appropriate & no additional complaints except as documented Physical Exam General General appearance: alert and in no apparent distress Head Head exam: atraumatic Eye Eye exam: Present normal appearance ENT ENT exam: Present normal external ear exam Neck Neck exam: Present full ROM Chest Chest inspection: Present symmetric chest wall rise Respiratory Respiratory exam: Present normal lung sounds bilaterally; Absent respiratory distress Cardiovascular Cardiovascular exam: Present regular rate and normal rhythm Abdominal Exam Abdominal exam: Present soft and tenderness (Right lower quadrant and suprapubic without peritonitis); Absent guarding exam: Present deferred Extremities Exam Extremities exam: Present normal inspection Back Exam Back exam: Present normal inspection Neurological Exam Neurological exam: Present alert and oriented X3 Psychiatric Psychiatric exam: Present normal affect Skin Skin exam: Present warm and dry Medical Decision Making Medical Records Screening: Per USPSTF and CDC recommendations, given the prevalence of disease in our region, it is our hospital?s policy to screen for HIV and viral Hepatitis for all patients aged 18 and over and those with ongoing risk factors. Edward Inquiry Pt receiving controlled substance: No Vital Signs: 05/13/25 14:58 05/13/25 15:18 05/13/25 15:30 Temperature 98.3 F 98.3 F Temperature Source Oral Oral Pulse Rate 73 68 Pulse Rate [Right] 73 Respiratory Rate 14 14 Blood Pressure 126/87 112/74 Blood Pressure [Right Arm] 126/87 Blood Pressure Mean [Right Arm] 100 Blood Pressure Source Automatic Cuff Blood Pressure Source [Right Arm] Automatic Cuff Blood Pressure Position Supine Blood Pressure Position [Right Arm] Supine 02 Sat by Pulse Oximetry 99 99 98 Oxygen Delivery Method Room Air Room Air Room Air Lab Data Lab Results 05/13/25 15:05: Urine Color Yellow, Urine Appearance Clear, Urine pH 6.0, Ur Specific [place] 1.020, Urine Protein Negative, Urine Glucose (UA) Negative, Urine Ketones Negative, Urine Blood Negative, Urine Nitrate Negative, Urine Bilirubin Negative, Urine Urobilinogen 0.2, Ur Leukocyte Esterase Negative, Urine RBC 3-5, Urine WBC Occasional, Ur Squamous Epith Cells Occasional, Amorphous Sediment 1+, Urine Bacteria 1+, Urine Mucus 1+ 05/13/25 15:17: WBC 7.5, RBC 4.87, Hgb 14.6, Hct 42.3, MCV 86.9, MCH 30.0, MCHC 34.5, RDW 12.6, Plt Count 216, MPV 10.1, Neut % (Auto) 69.2, Lymph % (Auto) 22.9, [place] % (Auto) 5.6, Eos % (Auto) 1.5, Baso % (Auto) 0.4, Neut # (Auto) 5.2, Lymph # (Auto) 1.7, [place] # (Auto) 0.4, Eos # (Auto) 0.1, Baso # (Auto) 0.0, Sodium 136, Potassium 3.9, Chloride 100, Carbon Dioxide 22, Anion Gap 17.9 H, BUN 18, Creatinine 0.50 L, Estimated Creat Clear 160, Estimated GFR 188, Est GFR ( Amer) 228, Glucose 90, Calcium 9.6, Total Bilirubin 0.3, AST 39, ALT 51, Alkaline Phosphatase 86, C-Reactive Protein 0.9, Total Protein 8.7 H, Albumin 5.1 H, Globulin 3.6 H, Albumin/Globulin Ratio 1.4, Lipase 79 05/13/25 15:22: VBG pH 7.40, VBG pCO2 33.2 L, VBG pO2 176.8 H, VBG HCO3 20.3 L, VBG Total CO2 21.3 L, VBG O2 Saturation 99.4 H, VBG Base Excess -4.4 L, VBG Lactic Acid 1.8 05/13/25 15:17 05/13/25 15:17 Orders (Tests/Meds): ED MEDICATIONS Discontinued Medications Generic Name Dose Route Start Last Admin Trade Name Freq PRN Reason Stop Dose Admin Lactated Ringer's 1,000 mls @ 999 mls/hr 05/13/25 15:08 05/13/25 15:21 Lactated Ringer's 1000 Ml Bag IV 05/13/25 16:08 999 mls/hr .Q1H1M ONE Administration Iopamidol 75 ml 05/13/25 15:48 05/13/25 15:49 Iopamidol-370 (76%);100ml Bottle IV 05/13/25 15:49 75 ml ONCE ONE Administration Morphine Sulfate 4 mg 05/13/25 15:03 05/13/25 15:21 Morphine 4mg/Ml Syringe IV 05/13/25 15:04 4 mg ONCE ONE Administration Ondansetron HCl 4 mg 05/13/25 15:03 05/13/25 15:21 Ondansetron 4mg/2ml Vial IV 05/13/25 15:04 4 mg ONCE ONE Administration Sodium Chloride 10 ml 05/13/25 15:48 05/13/25 15:49 Sodium Chloride 0.9% 10ml Syr (Rad Only) IV 05/13/25 15:49 10 ml ONCE ONE Administration ORDERS Category Date Time Status CT abdomen pelvis w con Stat Cat Scan 05/13/25 15:03 Completed CBC w/Auto Diff [Complete Blood Count Auto Diff] Stat Lab 05/13/25 15:17 Completed CMP [Comprehensive Metabolic Panel] Stat Lab 05/13/25 15:17 Completed CRP [C-Reactive Protein] Stat Lab 05/13/25 15:17 Completed Lipase Stat Lab 05/13/25 15:17 Completed UA [Urinalysis and Microscopic] Stat Lab 05/13/25 15:05 Completed VBG [Venous Blood Gas] Stat RT 05/13/25 15:22 Completed Medical Decision Narrative: Mr. Eubanks is a 34-year-old male with past medical history of GERD on pantoprazole who presents to the emergency department for complaints of nausea, vomiting and lower abdominal pain. Patient is Israeli-speaking and a virtual historical interpreter was used for the entire encounter. Patient states that starting yesterday, he developed nonbilious nonbloody vomiting as well as lower abdominal pain that radiates to his back. He also notes a few episodes of diarrhea with a small amount of blood in the diarrhea. He denies any previous abdominal surgeries. He has otherwise been in his normal state of health prior to this. He denies any dysuria or testicular pain. He states that he feels full quickly after eating. On arrival, patient is normotensive, heart rate within normal limits, afebrile, breathing comfortably on room air with appropriate oxygen saturation. Physical exam, stated above, revealed an overall well-appearing male in no distress. He has tenderness in the right lower quadrant, suprapubic area without guarding or rebound. Abdomen is soft and otherwise nontender. Cardiopulmonary exam is unremarkable. Differential diagnosis includes, but is not limited to: Appendicitis, diverticulitis, acute pancreatitis, acute cholecystitis, colitis, viral gastroenteritis, among others. The most morbid conditions were considered and workup was based on these. Workup in the emergency department included: CT abdomen pelvis with IV contrast, CBC, CMP, lipase, CRP, VBG with lactate, urinalysis. Patient was treated with 1 L lactated ringer, 4 mg IV morphine, 4 mg IV Zofran for symptomatic relief CT imaging interpreted by me personally and demonstrated no evidence of appendicitis, some inflammation of the intestinal wall consistent with enteritis, no evidence of obstruction. No other acute findings within the abdomen. See radiology report for final details. Laboratory studies interpreted by me personally demonstrated no leukocytosis, no anemia, pH of 7.4, lactate normal at 1.8. Sodium 136, potassium of 3.9, anion gap mildly elevated at 17.9, no ROMAN, lipase normal at 79. Urine without evidence of infection. On reassessment patient reported improvement in pain and nausea. He has not had any recurrence of his vomiting here. This felt like his symptomatology is best explained by a viral gastroenteritis given patient's CT imaging and workup today. Is felt that he is appropriate for discharge at this time with Zofran and symptomatic treatment at home. He was instructed follow-up with his primary care physician early next week if symptoms persist. He was given return precautions. All questions were answered. He demonstrated understanding and was in agreement this plan. He was then discharged from the emergency department in stable condition. Critical Care Critical Care Time Critical Care Time: No
[2025-05-13 15:18] VITALS: BP 126/87; PULSE 73; RESP 14; TEMP 36.8; O2SAT 99
[2025-05-13] MEDS: ONDANSETRON 4MG/2ML VIAL 4 MG IV (15:21)
[2025-05-13] MEDS: LACTATED RINGERS 1000ML 1,000 ML 999 ML IV (15:21)
[2025-05-13] MEDS: MORPHINE 4MG/ML SYRINGE 4 MG IV (15:21)
[2025-05-13 15:25] LABS: Microscopic, Urine URINE MICROSCOPIC (MICROSCOPIC)
[2025-05-13 15:25] LABS: Hematocrit 42.3 % (42.0-52.0); Hemoglobin 14.6 g/dL (14.1-18.0); Immature Granulocytes % 0.4 %; Mean Corpuscular HGB Conc 34.5 g/dL (31.8-35.4); Mean Corpuscular Hemoglobin 30.0 pg (27.0-31.2); Mean Corpuscular Volume 86.9 fl (80-94); Nucleated Red Blood Cells % 0 %; Platelet Count 216 K/mm3 (142-424); Red Blood Count 4.87 M/mm3 (4.60-6.20); Red Cell Distribution Width-SD 40.1 fL; White Blood Count 7.5 K/mm3 (4.8-10.8)
[2025-05-13 15:26] LABS: Lactate Venous 1.8 mmol/L (0.4-2.0); VBG HCO3 20.3 mmol/L (23-30); VBG PCO2 33.2 mmol/L (35-51); VBG PH 7.40 mmol/L (7.31-7.41); VBG PO2 176.8 mmol/L (28-40)
[2025-05-13 15:26] LABS: Bilirubin,Urine Negative (Negative); Color,Urine YELLOW (Yellow); Glucose,Urine (UA) Negative (Negative); Ketones,Urine Negative (Negative); Leukocyte Esterase,Urine Negative (Negative); PH,Urine 6.0 (5.0-8.5); Protein,Urine Negative (Negative); Specific Gravity, Urine 1.020 (1.005-1.030); Urobilinogen,Urine 0.2 EU/dl (0.2)
[2025-05-13 15:30] VITALS: BP 112/74; PULSE 68; O2SAT 98
[2025-05-13 15:30] LABS: Albumin Level 5.1 g/dl (3.5-5.0); Chloride 100 mmol/L (98-107); Potassium 3.9 mmoL/L (3.5-5.1); Sodium 136 mmol/L (136-145)
--- NOTE | 2025-05-13 15:30 | PC.NURSE ---
1526 RT called to notify of vbg that was sent to the lab
[2025-05-13 15:33] LABS: Alanine Aminotransferase 51 U/L (12-78); Albumin/Globulin Ratio 1.4 (1.1-1.8); Alkaline Phosphatase 86 U/L (38-126); Anion Gap 17.9 mEq/L (5-15); Aspartate Amino Transferase 39 U/L (17-59); Bilirubin,Total 0.3 mg/dl (0.2-1.3); Blood Urea Nitrogen 18 mg/dl (9-20); Calcium 9.6 mg/dl (8.4-10.2); Carbon Dioxide 22 mmol/L (22.0-30.0); Creatinine Clearance Estimated 160 mL/min (50-200); Creatinine,Serum 0.50 mg/dl (0.66-1.25); Estimated Glomerular Filt Rate 188 ml/min (>60); GFR (African American) 228 ML/MIN (>60); Globulin 3.6 g/dL (1.3-3.2); Glucose 90 mg/dl (74-100); Lipase 79 U/L (23-300); Total Protein,Serum 8.7 g/dl (6.3-8.2)
[2025-05-13 15:39] LABS: C-Reactive Protein 0.9 mg/L (0-4)
[2025-05-13] MEDS: IOPAMIDOL-370 (76%);100ML BOTTLE 75 ML IV (15:49)
[2025-05-13] MEDS: SODIUM CHLORIDE 0.9% 10ML SYR (RAD ONLY) 10 ML IV (15:49)
[2025-05-13 16:13] LABS: Squamous Epithelial Cell,Urine Occasional #/hpf (0-5); WBC,Urine Occasional #/hpf (0-3)
[2025-05-13 16:14] LABS: Amorphous Sediment,Urine 1+ /lpf; Bacteria,Urine 1+ /lpf; Mucus,Urine 1+ /lpf
[2025-05-13 17:50] VITALS: BP 123/81; PULSE 60; RESP 16; TEMP 36.9; O2SAT 97
== END 2025-05-13 18:01 | disposition home or self-care (01) ==
PROVIDERS: Emergency Provider Student in an Organized Health Care Education/Training Program
DX: R10.30 Lower abdominal pain, unspecified (principal); K52.9 Noninfective gastroenteritis and colitis, unspecified; R11.2 Nausea with vomiting, unspecified
CPT/HCPCS: 74177; 80053; 81001; 82803; 83690; 85025; 86140; 96361; 96374; 96375; 99284; J2270; J2405; J7120; Q9967